=== PATIENT | female | born 1965 | race Caucasian/White ===

== ENCOUNTER → 2016-05-23 | Outpatient (CLI) | payer OTHER ==
--- NOTE | 2016-05-23 14:02 | MA ---
Diagnostic Digital Mammogram Left Breast With iCAD Analysis Reason for examination: Evaluate possible increasing microcalcifications in the upper outer posterior left breast noted on the screening tomographic study April 18, 2016. Technique: Craniocaudal and true lateral magnification views are obtained. Also, a left breast true l ateral is performed. The examination is processed by the iCAD computer-aided detection system. Findings: Magnification views confirm a small cluster of predominantly rounded microcalcifications in the upper outer posterior left breast. Other scattered similar appearing microcalcifications are not ed rather diffusely in the left breast. No associated soft tissue mass is seen. Impression: Probably benign microcalcifications, BI-RADS 3. Recommendation: 6 month unilateral left mammographic follow-up with magnification views. I have reviewed this examination with Dr. Tanner and he is in agreement with the interpretation as we ll as follow-up recommendation. A verbal report was given to the patient. [facility], Later [facility] with send a result letter.
== END ==
LOC: FIMAGING 12:57
PROVIDERS: ATTEND Obstetrics & Gynecology
DX: R92.0 Mammographic microcalcification found on diagnostic imaging of breast (principal)
CPT/HCPCS: G0206

== ENCOUNTER → 2016-11-29 | Outpatient (CLI) | payer OTHER | LOC: FIMAGING 09:48 | PROVIDERS: ATTEND Obstetrics & Gynecology | DX: R92.0 Mammographic microcalcification found on diagnostic imaging of breast (principal) | CPT/HCPCS: G0206 ==